=== PATIENT | male | born 2000 | race Caucasian/White ===

== ENCOUNTER 2023-04-30 20:27 | Emergency (ER) | payer OTHER, SELFPAY ==
--- NOTE | ~2023-04-30 | XR_ITS ---
EXAM: XR nasal bones min 3V DATE: 04/30/2023 20:48 HISTORY: nasal injury DROPPED TORQUE WRENCH ON NOSE PRIOR TO . COMPARISON: None available. FINDINGS: Normal mineralization. Mild cortical step-off along the bridge of the nose, with slight de pression of the more distal aspect of the nasal bone. No lytic or blastic lesion. The aerated spaces are clear. Symmetric intact orbits. Soft tissue swelling over the bridge of the nose. IMPRESSION: Mildly depressed anterior nasal bone fracture. Reviewed, dictated and finalized at location K.
[2023-04-30 20:29] VITALS: BP 163/93; PULSE 94; RESP 15; TEMP 36.6; O2SAT 100
--- NOTE | 2023-04-30 21:53 | ED.WOUNDLAC ---
HPI - Wound/Laceration General Chief Complaint: Wound/Laceration Stated Complaint: nose injury Time Seen by Provider: 04/30/23 21:23 Source: patient Mode of arrival: ambulatory Limitations: no limitations History of Present Illness HPI narrative: Patient is a 22-year-old male who presents ED with report of nasal pain. 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 He complains of pain and swelling to his nose and feels his nose looks crooked. He did have a nosebleed afterwards which resolved within about 5 minutes. Denies any further bleeding. Denies difficulty breathing. Denies nausea, vomiting. He did not lose consciousness. Denies any dizziness or lightheadedness. Related Data Allergies Allergy/AdvReac Type Severity Reaction Status Date / Time azithromycin Allergy Intermediate Swelling Verified 04/30/23 20:42 of Lip/Tongue/Throat poison antione extract Allergy Intermediate SEVERE Verified 01/19/20 15:49 REDNESS/HIVES/SWELLING poison oak extract Allergy Intermediate HIVES/REDNE Verified 01/19/20 15:49 SS/SWELLING poison sumac extract Allergy Intermediate RASH/HIVES/ Verified 01/19/20 15:49 REDNESS/SWE LLING Penicillins Allergy Mild throat Verified 01/19/20 15:49 swelling Review of Systems Review of Systems: CONSTITUTIONAL: Denies fever, chills, or sweats. ENT: See HPI. CARDIOVASCULAR: Denies chest pain. RESPIRATORY: Denies dyspnea. GASTROINTESTINAL: Denies abdominal pain, nausea, vomiting. NEUROLOGIC: See HPI. All systems reviewed & are unremarkable except as noted in HPI and below PMFSH Family History Family History Father Hypertension Social History Social History Social History: single Smoking status: Never smoker Second hand tobacco smoke exposure: No Alcohol intake: never Substance use: never Substance use type: does not use Living arrangements: with family Occupation/Education: occupation Gender identity (if verbalized by the patient): Male Exam Narrative: GENERAL: Well appearing, well-nourished, non-toxic, in no acute distress. HEAD: Normocephalic, atraumatic. EYES: PERRLA/EOMI, conjunctiva clear. No nystagmus. No periorbital swelling or ecchymosis. ENT: Nasal bridge does appear slightly crooked to the right side. Nasal bridge swollen and tender to palpation. No significant ecchymosis. No active epistaxis. Dried blood in R nare. No septal hematoma. Nasal airway patent. No stridor. No dental issues. NECK: Supple. No adenopathy, no masses. RESPIRATORY: Airway patent, respirations nonlabored. CARDIOVASCULAR: Regular rate and rhythm without murmurs, rubs, or gallops. Radial pulses 2+ and equal bilaterally. MUSCULOSKELETAL: Moves all extremities. Strength/ROM intact without gross deformities. SKIN: Warm, dry, normal color. No rashes. NEURO: A&O X3. Speech clear. Cranial nerves II-XII grossly intact. Steady gait. No ataxic movements. PSYCHIATRIC: Appropriate mood and affect. Normal interaction. Course Vital Signs Vital signs: Vital Signs Temperature 97.8 F 04/30/23 20:29 Pulse Rate 94 04/30/23 20:29 Respiratory Rate 15 04/30/23 20:29 Blood Pressure 163/93 H 04/30/23 20:29 Pulse Oximetry 100 04/30/23 20:29 Oxygen Delivery Room Air 04/30/23 20:29 Temperature 97.8 F 04/30/23 20:29 Pulse Rate 89 04/30/23 22:13 Respiratory Rate 15 04/30/23 22:13 Blood Pressure 145/84 H 04/30/23 22:13 Pulse Oximetry 99 04/30/23 22:13 Oxygen Delivery Room Air 04/30/23 20:29 MDM - Wound/Laceration MDM Narrative Medical decision making narrative: Deformity noted to nasal bridge on exam. No signs of septal hematoma. No further epistaxis. No signs of airway compromise. X-ray of nasal bones confirmed anterior fred
[2023-04-30 22:13] VITALS: BP 145/84; PULSE 89; RESP 15; O2SAT 99
== END 2023-04-30 22:16 | disposition home or self-care (01) ==
PROVIDERS: Emergency Provider Physician Assistant; PCP Family Medicine
DX: S02.2XXA Fracture of nasal bones, initial encounter for closed fracture (principal); W20.8XXA Other cause of strike by thrown, projected or falling object, initial encounter; Y99.0 Civilian activity done for income or pay
CPT/HCPCS: 70160; 99283

== ENCOUNTER 2024-12-10 15:26 | Outpatient (CLI) | payer OTHER, SELFPAY ==
--- NOTE | ~2024-12-10 | US_ITS ---
EXAMINATION: US soft tissue LE LT DATE: 12/10/2024 15:36 INDICATION: Left anterior thigh mass. TECHNIQUE: Multiple grayscale and Doppler ultrasound images of the left lower limb were obtained. COMPARISON: None FINDINGS: In the patient's area concern in the left anterior thigh, there is a 10 x 6 x 15 mm hyperec hoic subcutaneous mass. IMPRESSION: 1. 15 mm hyperechoic subcutaneous mass in left anterior thigh, most likely a benign mass such as infl ammation or a lipoma. Reviewed, dictated and finalized at location L. IMPRESSION: 1. 15 mm hyperechoic subcutaneous mass in left anterior thigh, most likely a be nign mass such as inflammation or a lipoma.
== END 2024-12-10 15:27 | disposition home or self-care (01) ==
LOC: GOSHIMG 15:26
PROVIDERS: PCP Family Medicine; Visit Provider Physician Assistant Medical
DX: L98.9 Disorder of the skin and subcutaneous tissue, unspecified (principal)
CPT/HCPCS: 76882